=== PATIENT | female | born 1995 | race African-American/Black ===

== ENCOUNTER 2017-06-09 23:37 | Emergency (ER) | payer OTHER, MEDICAID ==
[~2017-06-09] VITALS: Ht 157.5 cm; Wt 71.0 kg
[~2017-06-09 23:37] MED LIST: ALBUTEROL
[2017-06-10] MEDS ORDERED: METOCLOPRAMIDE HCL 10MG/2ML VIAL IV ONE (01:15)
[2017-06-10] MEDS ORDERED: SODIUM CHLORIDE 0.9% 500 ML IV ONE (01:15)
[2017-06-10 01:45] VITALS: BP 114/70
== END 2017-06-10 01:54 | disposition home or self-care (01) ==
LOC: ER 23:37
DX: T39.1X1A Poisoning by 4-Aminophenol derivatives, accidental (unintentional), initial encounter (principal); T40.2X1A Poisoning by other opioids, accidental (unintentional), initial encounter; R10.9 Unspecified abdominal pain; R42 Dizziness and giddiness; R11.0 Nausea; E11.9 Type 2 diabetes mellitus without complications; F12.10 Cannabis abuse, uncomplicated; Y92.89 Other specified places as the place of occurrence of the external cause
CPT/HCPCS: 96374; 99284; J2765; J7040; Z7610

== ENCOUNTER 2017-10-22 08:57 | Emergency (ER) | payer OTHER, MEDICAID ==
[~2017-10-22] VITALS: Ht 160 cm; Wt 66.0 kg
[2017-10-22] MEDS ORDERED: IBUPROFEN 400MG TABLET PO ONE (09:30)
[2017-10-22 09:31] VITALS: BP 114/66
== END 2017-10-22 09:48 | disposition home or self-care (01) ==
LOC: ER 09:06
DX: S60.455A Superficial foreign body of left ring finger, initial encounter (principal); J45.909 Unspecified asthma, uncomplicated; W45.8XXA Other foreign body or object entering through skin, initial encounter; Y93.89 Activity, other specified; Y92.018 Other place in single-family (private) house as the place of occurrence of the external cause
CPT/HCPCS: 99284

== ENCOUNTER 2017-12-08 12:31 | Emergency (ER) | payer OTHER, MEDICAID ==
[~2017-12-08] VITALS: Ht 160 cm; Wt 69.0 kg
[2017-12-08 12:41] VITALS: BP 117/58
[2017-12-08] MEDS ORDERED: IBUPROFEN 800MG TABLET PO ONE (16:00)
[2017-12-08] MEDS ORDERED: ACETAMINOPHEN 325MG TABLET PO ONE (16:00)
== END 2017-12-08 16:09 | disposition home or self-care (01) ==
LOC: ER 13:47
DX: O9A.211 Injury, poisoning and certain other consequences of external causes complicating pregnancy, first trimester (principal); S63.501A Unspecified sprain of right wrist, initial encounter; F12.10 Cannabis abuse, uncomplicated; Z3A.12 12 weeks gestation of pregnancy; Y04.0XXA Assault by unarmed brawl or fight, initial encounter; Y93.89 Activity, other specified; Y92.89 Other specified places as the place of occurrence of the external cause; Y99.8 Other external cause status
CPT/HCPCS: 73110; 99284